=== PATIENT | female | born 1990 | race Caucasian/White ===

== ENCOUNTER 2017-07-14 01:05 | Inpatient (IN) | END 2017-07-17 11:23 | disposition home or self-care (01) | DRG 393 ==

== ENCOUNTER 2017-12-14 22:49 | Outpatient (CLI) | END 2017-12-15 02:20 | disposition home or self-care (01) ==

== ENCOUNTER 2018-11-03 03:00 | Outpatient (CLI) | payer OTHER ==
[~2018-11-03] VITALS: Ht 157.5 cm; Wt 64.7 kg
[~2018-11-03 03:00] MED LIST: FER325 PO; PREN-93 PO
[2018-11-03 03:53] VITALS: Ht 157.5 cm; Wt 64.7 kg
[2018-11-03 03:54] VITALS: BP 109/55; PULSE 66; RESP 18
--- NOTE | 2018-11-03 05:29 | PN ---
Triage Information Date/Time November 03, 2018 Reason for visit: DFM Weeks of Gestation 20w 6d /Para 2/1 Diabetes: none Hypertention: none Objective Vital Signs Date Temp Pulse Resp B/P (MAP) Pulse Ox O2 O2 Flow FiO2 Time Delivery Rate 11/03/18 97.7 66 18 109/55 Room Air 03:54 (73) Heart Rate: 140's Contractions: >10 Minutes Apart (none at first then a run of some UC's for which she was given water.) Disposition: Discharge Assessment/Plan A: IUP at 20w 6d. Decreased movement. False labor. P: D/C home after p.o.hydration to resolve the small UC's. Reviewed the factors that can influence perception of the baby moving at this early gestational age. EVERARDO PALACIO MD Nov 03, 2018 05:29
[2018-11-03] MEDS ORDERED: TERBUTALINE 1 MG/ML INJ SC PRN (05:30)
--- NOTE | 2018-11-03 07:36 | TRIAGE ---
OB Triage Datetime Report Generated by CPN: 11/03/2018 07:36 Datetime: 11/03/2018 07:05 Stage of : OB Triage Labor Evaluation Frequency: None Monitor Mode: External Resting Tone [place]: Relaxed Datetime: 11/03/2018 06:02 Stage of : OB Triage Pain Assessment Pain Scale: 0 Pain Presence: None/Denies Pain Type: N/A Pain Assessment Comments: Pt continues to deny pain or cramping Datetime: 11/03/2018 06:00 Stage of : OB Triage Labor Evaluation Frequency: Irregular/Irritability Monitor Mode: External Duration (sec)2399: 40-70 Quality: Mild Pattern: Normal: <= 5 Contractions in 10 Minutes Resting Tone [place]: Relaxed Datetime: 11/03/2018 05:30 Vaginal Exam Membrane Status: Intact Datetime: 11/03/2018 05:18 Stage of : OB Triage Datetime: 11/03/2018 05:12 Stage of : OB Triage Datetime: 11/03/2018 05:00 Stage of : OB Triage Labor Evaluation Frequency: 2-irregular Monitor Mode: External Duration (sec)2399: 40-60 Quality: Mild Pattern: Normal: <= 5 Contractions in 10 Minutes Resting Tone [place]: Relaxed Datetime: 11/03/2018 04:05 Stage of : OB Triage Datetime: 11/03/2018 04:01 Stage of : OB Triage Datetime: 11/03/2018 04:00 Stage of : OB Triage Labor Evaluation Frequency: x1 Monitor Mode: External Duration (sec)2399: 50 Quality: Mild Pattern: Normal: <= 5 Contractions in 10 Minutes Resting Tone [place]: Relaxed Datetime: 11/03/2018 03:55 EGA: 20.6 Datetime: 11/03/2018 03:48 EGA: 20.6 Datetime: 11/03/2018 03:46 Time of Arrival: 11/03/2018 03:23 Arrived By: Wheelchair Arrived From: Home Chief Complaint: Decreased to absent movt since 11/02 @1430 Movement: Decreased Contractions: Denies/Absent Rupture of Membranes: Denies Vaginal Bleeding: None Vaginal Discharge: Denies Recent Sexual Intercouse: Yes Abdominal Trauma: Not Applicable Patient Complaints: Other Time Provider Notified: 11/03/2018 05:12 Provider Notified: Initial Plan: Doppler Monitor Mode: Palpation Resting Tone [place]: Relaxed Contraction Comments: [place] applied. Abdomen soft. Pt denies any pain or cramping. Datetime: 11/03/2018 03:44 Stage of : OB Triage Assessment Type: Triage Maternal Assessment Level of Consciousness: Keenly Alert, Responsive DTR's/Clonus: DTRs 2+; No Clonus Headache: Denies Blurred Vision: No Respiratory Effort: Unlabored; Regular Rhythm; Equal Expansion Breath Sounds, Left: Clear and Equal Breath Sounds, Right: Clear and Equal Nausea/Vomiting: Denies RUQ Epigastric Pain: Denies Lower Extremities Edema: None Degree: None Upper Extremities Edema: None Degree: None Facial Edema: None Temperature Route: Oral Fall Risk Assessment History of Falling: (0) No Secondary Diagnosis: (0) No Ambulatory Aid: (0) Bedrest/Nurse Assist IV Therapy: (0) No Gait: (0) Normal/Bedrest/Immobile Mental Status: (0) Oriented to Own Ability Fall Score: 0 Fall Risk Score Definition: No Risk: No action required Pain Assessment Pain Scale: 0 Pain Presence: None/Denies Pain Type: N/A Datetime: 11/03/2018 03:42 Heart Rate FHR Baseline Rate: 140 Monitor Mode: Doppler
== END 2018-11-03 07:16 | disposition home or self-care (01) ==
LOC: L-D 03:00 → OBT 03:00
PROVIDERS: ATTEND Specialist
DX: O36.8120 Decreased fetal movements, second trimester, not applicable or unspecified (principal); Z3A.20 20 weeks gestation of pregnancy
CPT/HCPCS: 81001; G0463; J3105